=== PATIENT | female | born 1950 | race Caucasian/White ===

== ENCOUNTER → 2017-04-27 | Outpatient (CLI) | payer BC ==
[~2017-04-27] MED LIST: AMLODIPINE BESYL5 MG PO; ASPIRIN81 M2 PO; B-12500 MCG PO; COZAAR 25 MG TA25 M2 PO; COZAAR 50 MG TA50 M1 PO; FISH OIL 1,0001 EAC9 PO; GARLIC200 MG PO; MOTION RELIEF25 MG PO; NORVASC10 MG PO; PRESERVISION A1 EAC1 PO; VITAMIN D400 UNI1 PO
== END ==
LOC: RAD 01:43
DX: Z12.31 Encounter for screening mammogram for malignant neoplasm of breast (principal)

== ENCOUNTER → 2018-06-07 | Outpatient (CLI) | payer BC, OTHER | LOC: RAD 01:07 | DX: Z12.31 Encounter for screening mammogram for malignant neoplasm of breast (principal) ==

== ENCOUNTER → 2019-08-27 | Outpatient (CLI) | payer OTHER | LOC: RAD 13:04 | DX: Z12.31 Encounter for screening mammogram for malignant neoplasm of breast (principal) ==

== ENCOUNTER → 2019-08-30 | Outpatient (CLI) | payer OTHER | LOC: RAD 09:31 | DX: N63.20 Unspecified lump in the left breast, unspecified quadrant (principal); N63.10 Unspecified lump in the right breast, unspecified quadrant; R92.2 Inconclusive mammogram ==

== ENCOUNTER → 2020-02-11 | Outpatient (CLI) | payer OTHER | LOC: BC 09:44 | PROVIDERS: ATTEND Family Medicine | DX: R92.8 Other abnormal and inconclusive findings on diagnostic imaging of breast (principal) ==

== ENCOUNTER → 2020-11-02 | Outpatient (CLI) | payer OTHER | LOC: BC 11:33 | PROVIDERS: ATTEND Family Medicine | DX: Z12.31 Encounter for screening mammogram for malignant neoplasm of breast (principal) ==